=== PATIENT | female | born 1940 | race Caucasian/White ===

== ENCOUNTER 2017-01-11 12:24 | Emergency (ER) | payer MEDICARE, OTHER ==
--- NOTE | 2017-01-11 13:19 | ED Physician Documentation ---
PD HPI BACK PAIN - Stated complaint Stated Complaint: LOWER BACK PX - Chief complaint Chief Complaint: Back Pain - History obtained from History obtained from: Patient - History of Present Illness Timing - onset: How many days ago (10) Timing - duration: Days (10) Timing - details: Gradual onset, Still present Location: Lower, Right, Left, Other (radiates down to thighs laterally both sides) Quality: Pain, Spasm, Aching Associated symptoms: No: Fever, Weakness, Numbness, Incontinent of urine Improves with: Rest Worsened by: Movement, Twisting Contributing factors: No: Lifting, Twisting, Trauma Similar symptoms before: Diagnosis (prior back injury years ago and had surgical fixation. Not chronic pains.) Recently seen: Not recently seen Review of Systems Constitutional: denies: Fever, Chills Nose: denies: Rhinorrhea / runny nose, Congestion Throat: denies: Sore throat Cardiac: denies: Chest pain / pressure Respiratory: denies: Cough GI: denies: Abdominal Pain, Nausea, Vomiting, Constipation, Diarrhea : denies: Dysuria, Frequency, Incontinent Skin: denies: Rash, Lesions Neurologic: denies: Focal weakness, Numbness PD PAST MEDICAL HISTORY - Past Medical History Cardiovascular: None Respiratory: None Neuro: None Endocrine/Autoimmune: None Musculoskeletal: Other (prior back injury with surgery years ago) - Present Medications Home Medications: Ambulatory Orders Medication Instructions Recorded Confirmed HYDROcod/ACETAM 5/325 [[place] 5/325] 1 tab PO Q6H PRN #20 tablet 01/11/17 Methocarbamol [Robaxin] 500 mg PO Q6H PRN #25 tablet 01/11/17 Naproxen 375 mg PO BID #20 tablet 01/11/17 - Allergies Allergies/Adverse Reactions: Allergies Allergy/AdvReac Type Severity Reaction Status Date / Time No Known Drug Allergies Allergy Verified 01/11/17 12:38 PD ED PE NORMAL - Vitals Vital signs reviewed: Yes - General General: Alert and oriented X 3, Well developed/nourished, Other (appears in pain and with limited ROM of the low back due to pain. ) - Neck Neck: Supple, no meningeal sign, No bony TTP, No adenopathy - Cardiac Cardiac: RRR, No murmur - Respiratory Respiratory: Clear bilaterally - Abdomen Abdomen: Normal bowel sounds, Soft, Non tender, Non distended - Back Back: No CVA TTP, Other (tedner in paralumbar muscles. ) - Derm Derm: Normal color, Warm and dry - Extremities Extremities: Normal ROM s pain, No edema, No calf tenderness / cord - Neuro Neuro: Alert and oriented X 3, No motor deficit, No sensory deficit, Normal speech, Other (2+ DTRs at knees. ) Results - Vitals Vitals: Oxygen O2 Source Room air - Rads (name of study) lumbar Radiology: Prelim report reviewed (post surgical findings. No acute. ) PD MEDICAL DECISION MAKING - ED course Complexity details: reviewed results, considered differential (prior back surgery and has new pain and some radiation to legs. No weakness nor numbness nor incontinence. Not indication for emergent CT, except for age. CT done more as urgent and no obvious compression fractures/etc. ), d/w patient Departure - Departure Disposition: 01 Home, Self Care Condition: Stable Record reviewed to determine appropriate education?: Yes Instructions: ED Low Back Pain Injury, ED Sciatica Prescriptions: Naproxen 375 mg PO BID #20 tablet HYDROcod/ACETAM 5/325 [[place] 5/325] 1 tab PO Q6H PRN #20 tablet PRN Reason: Pain Methocarbamol [Robaxin] 500 mg PO Q6H PRN #25 tablet PRN Reason: Spasms Comments: Physical treatment such as massage stretching and chiropractic are okay. Use naproxen twice daily for the next 7-10 days. Add methocarbamol for muscle spasms and stiffness. Add Tylenol or hydrocodone as needed for pain. Recheck if not improved over the next week or so. Return sooner if worsening symptoms. Discharge Date/Time: 01/11/17 16:08
[2017-01-11] MEDS ORDERED: NAPROXEN 250 MG TABLET PO STA (13:38)
[2017-01-11] MEDS ORDERED: METHOCARBAMOL 500 MG TABLET PO STA (13:38)
[2017-01-11] MEDS ORDERED: HYDROcod/ACETAM 5/325 MG TABLET PO STA (13:38)
[2017-01-11] MEDS ORDERED: HYDROcod/ACETAM 5/325 MG TABLET ONE (13:42)
[2017-01-11] MEDS ORDERED: NAPROXEN 250 MG TABLET PO ONE (13:42)
[2017-01-11] MEDS ORDERED: METHOCARBAMOL 500 MG TABLET PO ONE (13:43)
--- NOTE | 2017-01-11 15:13 | CT Preliminary Report ---
Exam: CT Lumbar Spine W/O IMPRESSION: 1. 16 degrees of levoscoliosis between T12 and L3. No listhesis. Bilateral pedicle screws at L4 and S 1. No evidence for loosening or hardware failure. 2. L2-L3 shows disk space height loss, no erosive or destructive change or significant bony stenosis. 3. L3-L4 shows disk space height loss and prominent facets. No central or foraminal stenosis. 4. L4-L5 shows bilateral L4 pedicle screws, left-sided laminectomy. Interbody spacer. No central or f oraminal stenosis 5. L5-S1 shows bilateral S1 pedicle screws and interbody spacer. Left-sided laminectomy also noted. N o central or foraminal bony stenosis. [facility] SITE ID: [id number]
--- NOTE | 2017-01-11 15:48 | CT Report ---
EXAM: CT LUMBAR SPINE WITHOUT CONTRAST EXAM DATE: 01/11/2017 03:00 PM. CLINICAL HISTORY: Low back pain for a week; prior back fusion 2 yrs . COMPARISONS: None. TECHNIQUE: Thin-section axial images were acquired of the lumbar spine from T12 to S1 without contras t. Post-processing: Coronal and sagittal reformats. Other: None. In accordance with CT protocol optimization, one or more of the following dose reduction techniques w ere utilized for this exam: automated exposure control, adjustment of mA and/or KV based on patient s ize, or use of iterative reconstructive technique. FINDINGS: Alignment: 10.6 degrees of levoscoliosis between T12 and L3. No listhesis. Bones: Five [id number] lumbar vertebral bodies are present. Schmorl's node superior endplate L2 . Bilateral pedicle screws at L4 and S1. No evidence for loosening or hardware failure. Disk Levels/Facets: T12-L1: Unremarkable. L1-L2: Unremarkable. L2-L3: Some disk space height loss. No erosive or destructive changes. No stenosis. L3-L4: 10 disk space height loss, prominent facets. No central or foraminal stenosis. L4-L5: Bilateral L4 pedicle screws, left-sided laminectomy. Interbody spacer noted. No central or for aminal stenosis. L5-S1: Bilateral S1 pedicle screws, interbody spacer. Left side laminectomy. No central or foraminal stenosis. Musculature: Moderate fatty atrophy of the multifidus muscle. Other: The visualized pelvic cavity is unremarkable. IMPRESSION: 1. 10.6 degrees of levoscoliosis between T12 and L3. No listhesis. Bilateral pedicle screws at L4 and S1. No evidence for loosening or hardware failure. 2. L2-L3 shows disk space height loss, no erosive or destructive change or significant bony stenosis. 3. L3-L4 shows disk space height loss and prominent facets. No central or foraminal stenosis. 4. L4-L5 shows bilateral L4 pedicle screws, left-sided laminectomy. Interbody spacer. No central or f oraminal stenosis 5. L5-S1 shows bilateral S1 pedicle screws and interbody spacer. Left side laminectomy also noted. No central or foraminal bony stenosis. [facility] Referring Provider Line: [phone] SITE ID: [id number]
[2017-01-11 16:06] VITALS: BP 120/78
== END 2017-01-11 16:08 | disposition home or self-care (01) ==
LOC: ED 12:24
DX: M54.5 Low back pain (principal); M62.830 Muscle spasm of back
CPT/HCPCS: 72131; 99283; A9270

== ENCOUNTER 2017-06-24 17:39 | Emergency (ER) | payer MEDICARE ==
--- NOTE | 2017-06-24 18:45 | XRAY Report ---
EXAM: CHEST RADIOGRAPHY EXAM DATE: 06/24/2017 06:22 PM. CLINICAL HISTORY: Cough, chills. COMPARISON: 12/16/2009. TECHNIQUE: 2 views. FINDINGS: Lungs/Pleura: Again seen is scarring in the right upper lobe. There is bilateral bronchial interstiti al thickening. A vague area of consolidation is seen in the inferior lingula.. No pleural effusion or pneumothorax. Mediastinum: Heart and mediastinal contours are unremarkable. Other: None. IMPRESSION: 1. Inferior lingula opacity suspicious for pneumonia. 2. Chronic appearing right upper lobe scarring. [facility] Referring Provider Line: [phone] SITE ID: [id number]
[2017-06-24] MEDS ORDERED: guaiFENesin/CODEINE 5 ML UDC PO STA (19:47)
[2017-06-24] MEDS ORDERED: AZITHROMYCIN 250 MG TABLET PO STA (19:47)
--- NOTE | 2017-06-24 19:47 | ED Physician Documentation ---
PD HPI URI - Stated complaint Stated Complaint: COLD SXS - Chief complaint Chief Complaint: Resp - History obtained from History obtained from: Patient - History of Present Illness Timing - onset: Other (About 1 week of sinus pain, sore throat, over the last 5 days is moved into her chest with a minimally productive cough and mild shortness of breath, no fevers.) Review of Systems Constitutional: reports: Fatigue. 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 - Present Medications Home Medications: Ambulatory Orders Medication Instructions Recorded Confirmed HYDROcod/ACETAM 5/325 [[place] 5/325] 1 tab PO Q6H PRN #20 tablet 01/11/17 Methocarbamol [Robaxin] 500 mg PO Q6H PRN #25 tablet 01/11/17 Naproxen 375 mg PO BID #20 tablet 01/11/17 Albuterol Sulfate [Proventil Hfa 1 - 2 puffs IH Q4H PRN #1 06/24/17 Inhaler] hfa.aer.ad Azithromycin [Zithromax] 250 mg PO DAILY #4 tablet 06/24/17 guaiFENesin/CODEINE [Robitussin AC] 5 - 10 ml PO Q6H PRN #120 ml 06/24/17 - Allergies Allergies/Adverse Reactions: Allergies Allergy/AdvReac Type Severity Reaction Status Date / Time No Known Drug Allergies Allergy Verified 01/11/17 12:38 - Social History Does the pt smoke?: No Smoking Status: Former smoker Does the pt drink ETOH?: Yes Does the pt have substance abuse?: No - POLST Patient has POLST: No PD ED PE NORMAL - Vitals Vital signs reviewed: Yes - General General: Alert and oriented X 3, No acute distress - HEENT HEENT: PERRL, EOMI, Ears normal, Moist mucous membranes, Pharynx benign - Neck Neck: Supple, no meningeal sign, No bony TTP - Cardiac Cardiac: RRR, No murmur - Respiratory Respiratory: No respiratory distress, Other (Mild rhonchi, nonlabored) - Abdomen Abdomen: Non tender - Neuro Neuro: Alert and oriented X 3, Normal speech Results - Vitals Vitals: Vital Signs - 24 hr 06/24/17 17:48 Temperature 36.9 C Heart Rate 82 Respiratory 18 Rate Blood Pressure 180/94 H O2 Saturation 96 Oxygen O2 Source Room air - Labs Labs: Laboratory Tests 06/24/17 17:55 Influenza A (Rapid) Negative Influenza B (Rapid) Negative Influenza Types A,B Ag - - Rads (name of study) 2 view chest Radiology: EMP read contemporaneously (Lingular pneumonia) Departure - Departure Disposition: Home, Self Care Clinical Impression: Pneumonia Qualifiers: Pneumonia type: due to unspecified organism Laterality: left Lung location: lower lobe of lung Qualified Code(s): J18.1 - Lobar pneumonia, unspecified organism Condition: Good Record reviewed to determine appropriate education?: Yes Instructions: ED Pneumonia Adult Prescriptions: Albuterol Sulfate [Proventil Hfa Inhaler] 1 - 2 puffs IH Q4H PRN #1 hfa.aer.ad PRN Reason: Cough Azithromycin [Zithromax] 250 mg PO DAILY #4 tablet guaiFENesin/CODEINE [Robitussin AC] 5 - 10 ml PO Q6H PRN #120 ml PRN Reason: Cough Comments: Call your doctor to arrange a follow-up appointment, make the next available appointment. In the interim, return anytime if worse or if new symptoms develop. Your blood pressure was elevated today on check into the emergency department. This does not mean that you have hypertension, it is a common phenomenon to come to the emergency department and have elevated blood pressure. I recommend that you see your primary care physician within the week to have it rechecked when you are feeling better.
[2017-06-24 20:09] VITALS: BP 164/79
== END 2017-06-24 20:08 | disposition home or self-care (01) ==
LOC: ED 17:39
DX: J18.9 Pneumonia, unspecified organism (principal); R03.0 Elevated blood-pressure reading, without diagnosis of hypertension; Z87.891 Personal history of nicotine dependence
CPT/HCPCS: 71046; 87275; 87276; 99283; 99284; A9270

== ENCOUNTER → 2022-03-16 | Outpatient (CLI) | payer MEDICARE, OTHER | END | disposition short-term general hospital (02) | LOC: EMS 15:24 | DX: R11.2 Nausea with vomiting, unspecified (principal); R10.817 Generalized abdominal tenderness; R53.1 Weakness; I10 Essential (primary) hypertension | CPT/HCPCS: A0425; A0427 ==